=== PATIENT | male | born 1975 ===

== ENCOUNTER 2016-12-01 07:55 | Day surgery (SDC) | payer OTHER ==
[2016-12-01] MEDS ORDERED: Phenylephrine 10 mg/ml Inj ONE (08:15)
[2016-12-01] MEDS ORDERED: Nitroglycerin 50mg in D5W 0 MG/0 ML BOTTLE IV ONE (08:15)
[2016-12-01] MEDS ORDERED: Lidocaine 2% Inj (20ml) ONE (08:15)
[2016-12-01] MEDS ORDERED: Iodixanol 320 MG/ML 200 ML BOTTLE IV ONE (08:15)
[2016-12-01] MEDS ORDERED: Iohexol 350mgl/ml 50 ML ONE (08:15)
[2016-12-01] MEDS ORDERED: Midazolam 2 MG/2 ML VIAL ONE (08:16)
[2016-12-01 12:19] VITALS: TEMP 97.7
--- NOTE | 2016-12-01 12:54 | CARD ---
APPROVED REPORT EKG Measurement Heart [id number] <Conclusion> Normal sinus rhythm T wave abnormality, consider lateral ischemia Prolonged QT Abnormal ECG
[2016-12-01 14:32] VITALS: RESP 20
[2016-12-01 15:33] VITALS: BP 131/85; PULSE 90
[2016-12-01 15:40] VITALS: O2SAT 100
--- NOTE | 2016-12-01 20:15 | CARDCATH ---
PROCEDURE DATE: 12/01/2016 INDICATIONS: Mr. Mango Holly is a 41-year-old male admitted to [facility] with symptoms of CHF exacerbation, abdominal distention, and bilateral pulmonary congestion. His troponins were borderline positive and had severely elevated BNP. He underwent transthoracic echocardiogram which showed severe LV systolic dysfunction with MR and TR and therefore, he was brought to the laborer heading for evaluation of hemodynamic assessment and underlying etiology of his heart failure. PROCEDURE PERFORMED: Complete heart catheterization with selective left and right coronary angiogram, right heart catheterization with hemodynamic and pressure monitoring, 6-[place] right femoral arterial access, 7-[place] right femoral venous access, Mynx closure device for hemostasis. TECHNIQUES OF PROCEDURE: After obtaining informed consent, the patient was brought to the cardiac cath suite in post-absorptive non-sedated state. The patient was prepped and draped in the usual sterile fashion. A 2% lidocaine was used for infiltration anesthesia. Using modified Seldinger technique, a 6-[place] sheath was introduced into the left femoral artery and 7-[place] sheath was introduced into the left femoral. Subsequently, under fluoroscopic guidance with the balloon inflated 7-[place] Gordon-Sophia catheter was slowly advanced through the IVC to the RA, RVP, and wedge positions. Hemodynamics were obtained and cardiac outputs were calculated using the thermodilution method. Right heart cath hemodynamic cardiac output 5.95 L/min. Cardiac index is 3.37 L/min/m2. Hemodynamics: Right atrial pressures are 15/2/12. Pulmonary capillary mean wedge pressure was 14 mmHg. Pulmonary artery pressures were 63/19/35. Right ventricular pressures 107/6/17. IMPRESSION: Mild to moderate pulmonary hypertension, mildly elevated filling pressures. Normal cardiac output. Subsequently, over an exchanged length J-wire, a pigtail catheter was advanced into the left ventricle and left ventriculogram was obtained in the right anterior oblique view. Subsequently, the pigtail catheter was pulled back across the aortic valve and engaged in the subclavian. Over a J-wire, the pigtail catheter was exchanged to a JL4 and JR4 diagnostic catheters and angiograms of the left and right coronary systems were obtained in different orthogonal views. ANGIOGRAPHIC FINDINGS: The left main is a large sized vessel, bifurcates into left circumflex and left anterior descending artery. The left circumflex is a large sized vessel, gives off a large obtuse marginal branch and runs in the groove between the left posterior descending artery. The first obtuse marginal branch at the distal left bifurcation into superior inferior branches into moderate sized vessels. The left anterior descending artery is a large-sized vessel that gives off a medium sized diagonal branch and a few septal perforators type 3 wraparound left anterior descending. The right coronary artery is codominant, feeds the right ventricular branch and the posterior left ventricular. IMPRESSION: 1. Nonobstructive coronary artery disease. Left ventricular ejection fraction estimated to be 20-25%. Mild pulmonary hypertension, mildly elevated filling pressures. RECOMMENDATIONS: Guideline-directed medical therapy for heart failure. LUCY modulators for 3-6 minutes, consider ICD evaluation in 3-6 months if he does not improve. Thank you Dr. Lemus for letting me participate in the care of your patient. I will continue to monitor patient and titrate therapy once the patient is transferred back to [facility]. Giles Schwab MD
== END 2016-12-01 16:38 | disposition short-term general hospital (02) ==
LOC: CATH 07:55 → 2RSO 09:38 → CATH 16:38
PROVIDERS: ATTEND Internal Medicine Interventional Cardiology
DX: I25.10 Atherosclerotic heart disease of native coronary artery without angina pectoris (principal); I27.2 Other secondary pulmonary hypertension; I50.9 Heart failure, unspecified
CPT/HCPCS: 93005; 93460; 99152; C1760; C1769 ×2; C1894; C2629; J1644; J2250; J3010; J7040